=== PATIENT | female | born 1985 | race Two or more races ===

== ENCOUNTER 2022-01-28 15:35 | Emergency (ER) | payer MEDICARE, MEDICAID, SELFPAY ==
[2022-01-28 16:55] VITALS: BP 111/44; PULSE 57; RESP 18; TEMP 36.8; O2SAT 99; BMI 26.5
[2022-01-28 17:23] LABS: Amphetamine Screen Urine Not Detected (Not Detect); Barbiturates, Urine Not Detected (Not Detect); Benzodiazepines Screen Urine Not Detected (Not Detect); Cannabinoid Screen Urine POSITIVE (Not Detect); Cocaine Screen Urine Not Detected (Not Detect); Fentanyl, urine Not Detected (Not Detect); Opiate Screen Urine Not Detected (Not Detect); Phencyclidine Screen Urine Not Detected (Not Detect)
--- NOTE | 2022-01-28 17:51 | ED_ITS ---
HPI - General Adult General Chief complaint: General Medical Stated complaint: stated needs drug test per dcf Time Seen by Provider: 01/28/22 17:51 Source: patient Mode of arrival: ambulatory Limitations: no limitations History of Present Illness HPI narrative: Patient is a 36 year old assigned female at with no reported medical historypresenting to the emergency department today to have a drug screen done. Patient states that [facility] has requested that she get a drug screen. Patient denies any dizziness, lightheadedness, abdominal pain, nausea, vomiting, fever, chills, blurry vision, double vision, loss of vision, chest pain, difficulty breathing, shortness of breath, back pain, night sweats, pain with urination, increased urinary frequency, increased urinary urgency, blood in her urine or stool, syncope or a near syncopal episode, recent trauma or falls, bowel incontinence, bladder incontinence, bowel retention, bladder retention, or any other complaints at this time. Severity scale (1-10): 1 Relieving factors: none Exacerbating factors: none Associated symptoms: denies other symptoms Treatments prior to arrival: none Related Data Allergies Allergy/AdvReac Type Severity Reaction Status Date / Time No Known Allergies Allergy Unverified 12/09/19 15:33 Review of Systems Constitutional: Constitutional: Reports no additional constitutional complaints, Denies chills, Denies fever(s) and Denies night sweats Eyes: Eyes: Reports no additional eye complaints, Denies blurry vision, Denies change in vision, Denies diplopia, Denies eye discharge, Denies loss of vision and Denies eye pain ENT: Denies dizziness Cardiovascular: Cardiovascular: Reports no additional cardiovascular complaints, Denies chest pain, Denies lightheadedness, Denies Loss of Consciousness and Denies dyspnea Respiratory: Respiratory: Reports no additional respiratory complaints and Denies dyspnea Gastrointestinal: Gastrointestinal: Reports no additional gastrointestinal complaints, Denies abdominal pain, Denies melena, Denies hematochezia, Denies change in bowel habits and Denies change in stool character Genitourinary: Genitourinary: Denies hematuria, Denies urinary frequency, Denies dysuria, Denies urinary incontinence, Denies urinary hesitancy and Denies urinary urgency Musculoskeletal: Musculoskeletal: Reports no additional musculoskeletal complaints, Denies numbness and Denies tingling Neurologic: Denies dizziness, Denies loss of vision, Denies numbness and Denies tingling Psychiatric: Psychiatric: Reports no additional psychiatric complaints Endocrine: Endocrine: Reports no additional endocrine complaints Hematologic/Lymphatic: Hematologic/Lymphatic: Reports no additional hematologic/lymphatic complaints Allergic/Immunologic: Allergic/Immunologic: Reports no additional allergic/immunologic complaints [facility] Past Medical History Attestation statement: The following information was validated with the patient. Source: old records reviewed Social History Social History Advance Directives: No Advance Directives Information Provided: No Physical Exam ED Vital Signs: Vital Signs - 24 hr 01/28/22 16:55 Temperature 98.3 F Pulse Rate 57 Respiratory Rate 18 Blood Pressure 111/44 L Pulse Oximetry 99 Oxygen Delivery Method Room Air BMI result Body Mass Index 26.5 Const General: cooperative, no acute distress, alert and awake Nutritional Appearance: well nourished Orientation/consciousness: patient oriented x3 Limitations: no limitations HENMT Head: Yes normal to inspection and Yes atraumatic Ears: hearing grossly normal bilaterally and external ears normal General nose exam: Normal external nose present, no nasal discharge noted and no epistaxis Face and sinus: Yes normal facial exam, No abrasion and No laceration Mouth: Normal oral and palatal mucosa present, no drooling and no muffled voice Eyes General: appearance normal, both eyes and all related structures Periorbital: periorbital findings normal Eyelids: Yes eyelids normal Conjunctivae: conjunctivae normal Pupils: Equal, round and reactive pupils present EOM: EOMs intact bilaterally Neck Neck: Yes normal visual inspection, Yes full ROM and Yes no lymphadenopathy Chest Chest palpation & inspection: normal inspection of the chest Resp Effort & Inspection: normal respiratory effort and able to speak in complete sentences Auscultation: clear to auscultation bilaterally Cardio Rate: regular rate Rhythm: regular rhythm GI Inspection: Yes normal to inspection Neuro General: patient oriented x3 and moves all extremities Cranial nerves: Yes Equal, round and reactive pupils present Cognition (Neuro): normal cognition Motor exam (neuro): 5/5 motor strength present throughout Sensory Exam: Normal double simultaneous stimulation for sensation Coordination: [id number] test normal Extrem General: Yes normal to inspection, Yes full ROM and Yes capillary refill normal Psych Appearance: grossly normal Mental Status: mental status grossly normal Affect: normal affect Attitude: cooperative Thought process: Normal thought process present Thought content: Normal thought content present Insight: Good insight present (Psych) Medical Decision Making MDM Narrative Medical decision making narrative: Patient is a 36 year old assigned female at with no reported medical history presenting to the emergency department today needing a drug screen. Patient's physical exam was unremarkable. Patient's drug screen came back positve for THC but was otherwise unremarkable. I explained my physical exam findings as well as all test results to the patient. I answered all questions asked by the patient. I stressed the importance of the patient taking her medication as prescribed. I stressed the importance of the patient following up with her primary care provider. I stressed the importance of the patient returning to the emergency department immediately if her symptoms were to worsen or if she were to develop any dizziness, shortness of breath, difficulty breathing, chest pain, blurry vision, loss of vision, nausea, vomiting, abdominal pain, fever, chills, back pain, or any other complaints. Patient verbalized agreement and understanding with this treatment plan and discharge. Medical Records Medical records reviewed: Yes I reviewed the patient's medical records. Lab Data Lab results reviewed: Yes I reviewed the patient's lab results. Labs: Lab Results 01/28/22 Range/Units 17:00 Urine Opiates Screen Not Detected (Not Detect) Urine Fentanyl Screen Not Detected (Not Detect) Ur Barbiturates Screen Not Detected (Not Detect) Ur Phencyclidine Scrn Not Detected (Not Detect) Ur Amphetamines Screen Not Detected (Not Detect) U Benzodiazepines Scrn Not Detected (Not Detect) Urine Cocaine Screen Not Detected (Not Detect) U Marijuana (THC) Screen POSITIVE H (Not Detect) Discharge Plan Discharge Clinical Impression: Encounter for drug screening Patient Disposition: Home, Self-Care Additional Instructions: Follow up with your primary care provider. Return to the emergency department immediately if your symptoms worsen or if you develop any dizziness, shortness of breath, difficulty breathing, chest pain, blurry vision, loss of vision, nausea, vomiting, abdominal pain, fever, chills, back pain, or any other complaints. Referrals: [facility] [place] Family Medicine [Provider Group] (Call to establish and follow up with a primary care provider. If you already have a primary care provider, please follow up with them. ) [facility] [place] [facility] [Provider Group] (Call to establish and follow up with a primary care provider. If you already have a primary care provider, please follow up with them. ) [facility] [place] Primary [facility] [Provider Group] (Call to establish and follow up with a primary care provider. If you already have a primary care provider, please follow up with them. ) Interventions: ED Discharge Assessment Last Done: 01/28/22 18:02 Discharge Date/Time: 01/28/22 18:02 Print Language: Tanzanian
== END 2022-01-28 18:02 | disposition home or self-care (01) ==
PROVIDERS: Emergency Provider Emergency Medicine
DX: Z02.83 Encounter for blood-alcohol and blood-drug test (principal)
CPT/HCPCS: 80307; 99282; 99283

== ENCOUNTER 2022-04-09 11:03 | Emergency (ER) | payer MEDICARE, MEDICAID, SELFPAY ==
[2022-04-09 11:56] VITALS: BP 109/48; PULSE 69; RESP 14; TEMP 36.1; O2SAT 98; BMI 24.0
--- NOTE | 2022-04-09 11:56 | ED.GENADULT ---
HPI - General Adult General Chief complaint: General Medical Stated complaint: Drug test Time Seen by Provider: 04/09/22 12:30 Source: patient Mode of arrival: ambulatory Limitations: no limitations History of Present Illness HPI narrative: 36 yold female presents to the ED requesting drug test. patient states DCF wants her to have drug test for medical clearance. patient asympomatic Related Data Previous Rx's Medication Instructions Recorded nitrofurantoin 100 mg PO Q12H 7 days #14 caps 04/09/22 monohydrate/macrocrystals 100 mg capsule (Macrobid) Allergies Allergy/AdvReac Type Severity Reaction Status Date / Time No Known Allergies Allergy Unverified 12/09/19 15:33 Review of Systems Review of Systems: Patient asymptomatic [facility] Social History Social History Advance Directives: No Advance Directives Information Provided: No Physical Exam ED Vital Signs: Vital Signs - 24 hr 04/09/22 11:56 Temperature 96.9 F Pulse Rate 69 Respiratory Rate 14 Blood Pressure 109/48 L Pulse Oximetry 98 Oxygen Delivery Method Room Air BMI result Body Mass Index 24.0 Const General: cooperative, healthy appearing, comfortable, no acute distress, well developed, alert, awake and Physically active Orientation/consciousness: oriented to person, oriented to place, oriented to time and patient oriented x3 HENMT Head: Yes normal to inspection, Yes No palpable skull fracture present, Yes normocephalic, Yes atraumatic and No abrasion Eyes General: appearance normal, both eyes and all related structures Neck Neck: Yes normal visual inspection, Yes full ROM, Yes no lymphadenopathy, Yes no meningeal signs, Yes trachea midline, Yes supple, No anterior neck swelling and No tender Chest Chest palpation & inspection: normal inspection of the chest and normal palpation of entire chest wall Resp Effort & Inspection: normal respiratory effort and able to speak in complete sentences Auscultation: clear to auscultation bilaterally Cardio Jugular venous distension: no JVD Heart sounds: S1 normal heart sound present and S2 normal heart sound present GI Inspection: Yes normal to inspection and No abdominal wall ecchymosis Palpation (GI): Soft to palpation, not firm, nontender, no guarding and not rigid General: No CVA tenderness and Yes no CVA tenderness Back/Spine/Pelvis Back: no CVA tenderness, No CVA tenderness and No back tenderness Skin General skin exam: no rashes or lesions noted and elasticity normal Neuro General: oriented to person, oriented to place, oriented to time, patient oriented x3, gait normal, tone normal, moves all extremities, Normal light touch and pain sensation, no meningeal signs, no focal motor deficits, CN's II-XI intact bilaterally and normal sensation to monofilament Extrem General: Yes normal to inspection and Yes full ROM Psych Appearance: grossly normal and well kempt Course Course Course Narrative: RME: 36 yold female presents to the ED for drug test. DCF wants patient to have a drug screen as medical clearnace. patient states no physical complaitns. UA, UCG, and [facility] ordered Medical Decision Making Medical Decision Making MDM Narrative: 36 yold female seen here requesting drug test Admission/Observation not needed Lab Data MDM Lab Attestation statement: I reviewed the patient's lab results. Labs: Lab Results 04/09/22 04/09/22 04/09/22 Range/Units 12:03 12:03 12:03 Urine Color Yellow Urine Appearance Cloudy Urine pH 5.5 (5.0-9.0) Ur Specific [place] 1.020 (1.005-1.025) Urine Protein Negative (Neg-Trace) mg/dL Urine Glucose (UA) Negative (Negative) mg/dL Urine Ketones Negative (Negative) mg/dL Urine Blood Negative (Negative) Urine Nitrite Negative (Negative) Ur Leukocyte Esterase Large (3+) H (Negative) Urine RBC 0-2 (0-2) /HPF Urine WBC 11-20 H (0-5) /HPF Ur Squamous Epith Cells 11-20 (0-2) /HPF Urine Bacteria Trace (None Seen) Hyaline Casts 0-2 (0-2) /LPF Urine Test NEGATIVE (NEGATIVE) Urine Opiates Screen Not Detected (Not Detect) Urine Fentanyl Screen Not Detected (Not Detect) Ur Barbiturates Screen Not Detected (Not Detect) Ur Phencyclidine Scrn Not Detected (Not Detect) Ur Amphetamines Screen Not Detected (Not Detect) U Benzodiazepines Scrn Not Detected (Not Detect) Urine Cocaine Screen Not Detected (Not Detect) U Marijuana (THC) Screen POSITIVE H (Not Detect) Prescription Management I considered prescription management with: Antibiotic patient has UTI Discharge Plan Discharge Clinical Impression: Normal exam Patient Disposition: Home, Self-Care Instructions: Urinary Tract Infection in Women (ED), Medical Clearance for Substance Abuse Treatment (ED) Additional Instructions: Return to the ED for any concerning symptoms. Please follow up with PCP Prescriptions: New nitrofurantoin monohyd/m-cryst [Macrobid] 100 mg capsule 100 mg PO Q12H 7 Days Qty: 14 0RF Rx Instructions: must administer with a meal/food Discharge Date/Time: 04/09/22 12:45 Print Language: Urdu
[2022-04-09 12:17] LABS: Appearance Urine Cloudy; Color Urine Yellow; Glucose Urine UA Negative (Negative); Leukocyte Esterase Urine Large (3+) (Negative); Nitrite Urine Negative (Negative); PH 5.5 (5.0-9.0); UMIC TRIGGER UACC YES; Urine Blood Negative (Negative); Urine Ketones Negative (Negative); Urine Protein Negative (Neg-Trace)
[2022-04-09 12:18] LABS: UPreg QC Valid YES; Urine Pregnancy NEGATIVE (NEGATIVE)
[2022-04-09 12:20] LABS: Bacteria Urine Trace (None Seen); Hyaline Casts Urine 0-2 /LPF (0-2); RBC Urine 0-2 /HPF (0-2); UACC Culture Trigger YES
[2022-04-09 12:27] LABS: Amphetamine Screen Urine Not Detected (Not Detect); Barbiturates, Urine Not Detected (Not Detect); Benzodiazepines Screen Urine Not Detected (Not Detect); Cannabinoid Screen Urine POSITIVE (Not Detect); Cocaine Screen Urine Not Detected (Not Detect); Fentanyl, urine Not Detected (Not Detect); Opiate Screen Urine Not Detected (Not Detect); Phencyclidine Screen Urine Not Detected (Not Detect)
--- NOTE | 2022-04-09 16:56 | PC.NURSE ---
discharge by provider
== END 2022-04-09 12:45 | disposition home or self-care (01) ==
PROVIDERS: Physician Assistant Medical; Emergency Provider Emergency Medicine
DX: Z02.9 Encounter for administrative examinations, unspecified (principal); Z79.899 Other long term (current) drug therapy
CPT/HCPCS: 80307; 81001; 81025; 87086; 99282

== ENCOUNTER 2022-09-23 04:59 | Emergency (ER) | payer MEDICARE, MEDICAID, SELFPAY ==
[2022-09-23 05:00] VITALS: BP 128/53; PULSE 84; RESP 18; TEMP 36.1; O2SAT 96; BMI 21.3
--- NOTE | 2022-09-23 06:21 | ED.MEDCLEAR ---
HPI - Medical Clearance General Chief complaint: Medical Clearance Stated complaint: general medical Time Seen by Provider: 09/23/22 05:58 Source: patient Mode of arrival: ambulatory Limitations: no limitations History of Present Illness HPI Narrative: 36-year-old female came in for medical clearance for a new job that need urine tox screen. Patient declined using any drugs. Related Information Previous Rx's Medication Instructions Recorded nitrofurantoin 100 mg PO Q12H 7 days #14 caps 04/09/22 monohydrate/macrocrystals 100 mg capsule (Macrobid) Allergies Allergy/AdvReac Type Severity Reaction Status Date / Time No Known Allergies Allergy Unverified 12/09/19 15:33 Review of Systems Review of Systems: All other systems are reviewed and are negative Constitutional: Reports as per HPI and Reports no additional constitutional complaints Eyes: Reports as per HPI and Reports no additional eye complaints Reports system reviewed and no additional complaints, except as documented Cardiovascular: Reports as per HPI and Reports no additional cardiovascular complaints Respiratory: Reports as per HPI and Reports no additional respiratory complaints Gastrointestinal: Reports as per HPI and Reports no additional gastrointestinal complaints Genitourinary: Reports no additional female genitourinary complaints Musculoskeletal: Reports no additional musculoskeletal complaints Skin/Breast: Reports system reviewed and no additional complaints, except as docu Psychiatric: Reports no additional psychiatric complaints Endocrine: Reports no additional endocrine complaints Hematologic/Lymphatic: Reports no additional hematologic/lymphatic complaints Allergic/Immunologic: Reports no additional allergic/immunologic complaints Reports system reviewed and no additional complaints, except as documented and Reports Abnormal speech present [facility] Social History Social History Advance Directives: No Advance Directives Information Provided: No Physical Exam Vital Signs: Vital Signs: Last Vital Signs Temp 97 F 09/23/22 05:00 Pulse 84 09/23/22 05:00 Resp 18 09/23/22 05:00 BP 128/53 L 09/23/22 05:00 Pulse Ox 96 09/23/22 05:00 O2 Del Method Room Air 09/23/22 05:00 BMI result Body Mass Index 21.3 Vital signs have been reviewed as appeared to be correct. Blood pressure normal. Heart rate normal. Respiration rate normal. Temperature normal. Oxygen saturation normal. Appearance: Alert. Oriented X3. No acute distress. Head: Normal external exam. Normocephalic. Atraumatic. No Dick signs noted. No raccoon eyes noted Eyes: PERRLA. EOMI. Conjunctiva and sclera normal. Eyelids normal. ENT: TM's Normal. Pharynx normal. Uvula midline. Moist mucous membranes. No trismus noted. No drooling noted. No muffled voice noted. Neck: Normal inspection. Neck supple. FROM. No adenopathy. Thyroid Normal. No meningeal signs. No neck mass noted. CVS: Normal heart rate and rhythm. Heart sound normal. No murmurs noted. Pulses normal throughout. Respiratory: No respiratory distress. Painless inspiration. Breath sounds normal. No wheezes/rales/rhonchi noted. Chest nontender. No accessory muscle usage noted or decreased air movement noted. Abdomen: Soft and nontender. Bowel sounds normal in all 4 quadrants. No distention noted. No organomegaly noted. No visible injury noted. Back: No CVA tenderness. Full range of motion noted. Skin: Skin warm and dry. Normal skin color. Normal skin turgor. No rashes/lesions/lacerations noted. Extremities: No lower extremity edema. Extremities exhibit normal range of motion. Extremities nontender. Neuro: Oriented X 3. Cranial nerve exam: II-XII are grossly intact No motor deficit. No sensory deficit. Reflexes normal. Course Course Course Narrative: Normal general physical exam, patient is positive for cocaine and fentanyl. Medical Decision Making Differential Diagnosis Differential Diagnoses: The differential diagnosis associated with the presentation includes (Medical screening exam, urine toxic screen.) Lab Data MDM Lab Attestation statement: I reviewed the patient's lab results. Labs: Lab Results 09/23/22 Range/Units 05:05 Urine Opiates Screen Not Detected (Not Detect) Urine Fentanyl Screen POSITIVE H (Not Detect) Ur Barbiturates Screen Not Detected (Not Detect) Ur Phencyclidine Scrn Not Detected (Not Detect) Ur Amphetamines Screen Not Detected (Not Detect) U Benzodiazepines Scrn Not Detected (Not Detect) Urine Cocaine Screen POSITIVE H (Not Detect) U Marijuana (THC) Screen Not Detected (Not Detect) Discharge Plan Discharge Clinical Impression: Encounter for medical screening examination, Polysubstance abuse Patient Disposition: Home, Self-Care Instructions: Normal Exam (ED) Prescriptions: No Action nitrofurantoin monohyd/m-cryst [Macrobid] 100 mg capsule 100 mg PO Q12H 7 Days Qty: 14 0RF Rx Instructions: must administer with a meal/food
== END 2022-09-23 06:33 | disposition home or self-care (01) ==
PROVIDERS: Emergency Provider Emergency Medicine
DX: Z02.89 Encounter for other administrative examinations (principal); F19.10 Other psychoactive substance abuse, uncomplicated
CPT/HCPCS: 80307; 99284

== ENCOUNTER 2022-11-07 16:54 | Emergency (ER) | payer MEDICARE, MEDICAID, SELFPAY ==
[2022-11-07 17:34] VITALS: BP 118/71; PULSE 62; RESP 17; TEMP 36.4; O2SAT 100; BMI 17.4
--- NOTE | 2022-11-07 18:55 | ED_ITS ---
HPI - Skin/Abscess/Foreign Bdy General Chief complaint: Skin/Abscess/Foreign Body Stated complaint: Cyst on R buttocks Time Seen by Provider: 11/07/22 18:58 Source: patient, RN notes reviewed and old records reviewed Mode of arrival: ambulatory History of Present Illness HPI narrative: 37-year-old female with no significant past medical history presenting to the ED complaining painful cyst right buttock x3 days. Admits area draining small amount of blood and pus intermittently at home. Denies fever/chills, painful BMs, hematuria complaint: abscess/boil Related Data Previous Rx's Medication Instructions Recorded nitrofurantoin 100 mg PO Q12H 7 days #14 caps 04/09/22 monohydrate/macrocrystals 100 mg capsule (Macrobid) cephalexin 500 mg capsule 500 mg PO QID 7 days #28 caps 11/07/22 doxycycline hyclate 100 mg tablet 100 mg PO BID 7 days #14 tabs 11/07/22 Allergies Allergy/AdvReac Type Severity Reaction Status Date / Time No Known Allergies Allergy Unverified 12/09/19 15:33 Review of Systems Review of Systems: Constitutional: No Fever, No Chills ENT/Mouth: No Ear Pain, No Nasal Congestion, No sore throat, No Rhinorrhea, No Swallowing Difficulty Cardiovascular: No Chest Pain, No SOB Respiratory: No Cough, No Wheezing Gastrointestinal: No Nausea, No Vomiting, No Diarrhea, No Constipation, No Abdominal pain Musculoskeletal: No joint pain, No Myalgias, No Joint Swelling Skin: +Skin Lesions, No rash Neuro: No Weakness Yes all other systems are reviewed and are negative Constitutional: Constitutional: Reports as per [facility] Past Medical History Attestation statement: The following information was validated with the patient. Source: old records reviewed Physical Exam Vital Signs: Vital Signs: Last Vital Signs Temp 97.5 F 11/07/22 17:34 Pulse 62 11/07/22 17:34 Resp 17 11/07/22 17:34 BP 118/71 11/07/22 17:34 Pulse Ox 100 11/07/22 17:34 O2 Del Method Room Air 11/07/22 17:34 BMI result Body Mass Index 17.4 Const: General: cooperative, healthy appearing and no acute distress Orientation/consciousness: patient oriented x3 Limitations: no limitations HEENT: Head: Yes normal to inspection and Yes atraumatic Ears: hearing grossly normal bilaterally General nose exam: Normal external nose present Face and sinus: Yes normal facial exam Eyes: General: appearance normal, both eyes and all related structures EOM: EOMs intact bilaterally Neck: Neck: Yes normal visual inspection and Yes no meningeal signs Resp: Effort & Inspection: normal respiratory effort and no respiratory distress Cardio: Rate: regular rate Skin: Other: + small indurated abscess noted to right buttock. Mild overlying erythema, tender to palpation. No fluctuance or active drainage. No streaking. No warmth. No perianal/perirectal involvement Rashes: no rashes Neuro: General: patient oriented x3, tone normal and no meningeal signs Cranial nerves: Yes CN's II-XII intact bilaterally Gait exam (Neuro): Normal gait present Extrem: General: Yes normal to inspection Medical Decision Making Medical Decision Making MDM Narrative: 37-year-old female with no significant past medical history presenting to the ED complaining painful cyst right buttock x3 days. On exam vital signs stable, NAD, nontoxic appearing, physical exam as noted above with indurated abscess. No indication for I&D at this time. No evidence of pilonidal, perirectal or perianal abscess. No evidence of Mehran gangrene Plan:PO antibiotics, PCP follow-up Results discussed with patient including worrisome signs and symptoms and strict return precautions, and when to return to the emergency department. They verbalized understanding and feel safe for discharge at this time. Differential Diagnosis Differential Diagnoses: The differential diagnosis associated with the presentation includes As above External Record Review External record reviewed: Inpatient record, Office record, Outpatient record, Prior outpatient labs, Prior outpatient radiology, Primary care record and Outside ED record Tests considered The following testing was considered but not selected: As above Prescription Management I considered prescription management with: Pain Medication and Antibiotic Discharge Plan Discharge Clinical Impression: Abscess Patient Disposition: Home, Self-Care Instructions: Abscess (ED) Additional Instructions: Apply warm compresses Keflex and doxycycline or antibiotics please take as prescribed If area worsens, becomes more red you have fever, pain is unbearable, is open/draining return to the ED Follow-up with her doctor Prescriptions: New cephalexin 500 mg capsule 500 mg PO QID 7 Days Qty: 28 0RF doxycycline hyclate 100 mg tablet 100 mg PO BID 7 Days Qty: 14 0RF No Action nitrofurantoin monohyd/m-cryst [Macrobid] 100 mg capsule 100 mg PO Q12H 7 Days Qty: 14 0RF Rx Instructions: must administer with a meal/food Referrals: Physician,Unknown J [Primary Care Provider] -
== END 2022-11-07 19:14 | disposition home or self-care (01) ==
LOC: HO.ED 19:01
PROVIDERS: Emergency Provider Emergency Medicine
DX: L02.31 Cutaneous abscess of buttock (principal)
CPT/HCPCS: 99282; 99283

== ENCOUNTER 2024-04-05 14:41 | Emergency (ER) | payer MEDICARE, SELFPAY ==
[2024-04-05 15:13] VITALS: BP 110/78; PULSE 102; RESP 16; TEMP 36.4; O2SAT 95; BMI 18.6
--- NOTE | 2024-04-05 15:15 | ED_ITS ---
HPI - General Adult General Chief complaint: Skin/Abscess/Foreign Body Stated complaint: outbrake rash Time Seen by Provider: 04/05/24 15:15 Source: patient, RN notes reviewed and old records reviewed Mode of arrival: ambulatory Limitations: no limitations History of Present Illness ED Provider: Celia [facility] narrative: Patient is a 30-year-old female with history of genital herpes presenting with complaint of HSV outbreak to genital area for the past 5 days. States feels simialar to prior outbreaks but she does not have any medication at home. Denies abdominal pain or urinary symptoms. Denies fevers. Denies abnormal discharge. MD complaint: genital rash Onset (ago): day(s) Severity: severe Quality: burning Pain Consistency: constant Treatments prior to arrival: none Related Data Previous Rx's ?Medication ?Instructions ?Recorded nitrofurantoin 100 mg PO Q12H 7 days #14 caps 04/09/22 monohydrate/macrocrystals 100 mg capsule (Macrobid) cephalexin 500 mg capsule 500 mg PO QID 7 days #28 caps 11/07/22 doxycycline hyclate 100 mg tablet 100 mg PO BID 7 days #14 tabs 11/07/22 valacyclovir 1 gram tablet 500 mg (1/2 x 1 gram) PO BID 3 04/05/24 days #3 tabs Allergies Allergy/AdvReac Type Severity Reaction Status Date / Time ibuprofen Allergy Rash Verified 04/05/24 15:15 Review of Systems Review of Systems: As per HPI Yes all other systems are reviewed and are negative Constitutional: Constitutional: Reports as per HPI Physical Exam ED Vital Signs: Vital signs have been reviewed and appear to be correct. Blood pressure normal. Heart rate normal. Respiratory rate normal. Temperature normal. Oxygen saturation normal. Const General: cooperative, healthy appearing and no acute distress Orientation/consciousness: oriented to person, oriented to place, oriented to time and patient oriented x3 Limitations: no limitations HENMT Head: Yes normocephalic and Yes atraumatic Ears: external ears normal General nose exam: Normal external nose present Face and sinus: Yes face symmetric Mouth: oropharynx normal and moist mucous membranes Throat: Yes uvula midline Eyes Pupils: Equal, round and reactive pupils present Neck Neck: Yes normal visual inspection and Yes supple Resp Effort & Inspection: normal respiratory effort and able to speak in complete sentences Auscultation: clear to auscultation bilaterally Cardio Rate: regular rate Rhythm: regular rhythm Heart sounds: S1 normal heart sound present and S2 normal heart sound present GI Palpation (GI): Soft to palpation and nontender Auscultation: normoactive bowel sounds General: Yes no CVA tenderness Back/Spine/Pelvis Back: no CVA tenderness Skin General skin exam: elasticity normal and turgor normal Neuro General: oriented to person, oriented to place, oriented to time, patient oriented x3, moves all extremities, no focal motor deficits and CN's II-XI intact bilaterally Cranial nerves: Yes Equal, round and reactive pupils present Cognition (Neuro): normal cognition Extrem General: Yes full ROM, Yes no pedal edema and Yes no calf tenderness Psych Mental Status: mental status grossly normal Affect: normal affect Thought process: Normal thought process present Medical Decision Making Medical Decision Making [facility] Narrative: Patient is a 30-year-old female with history of genital herpes presenting with complaint of HSV outbreak to genital area for the past 5 days. On exam patient is awake, A+Ox3, VS WNL, afebrile, normal neurological exam without focal deficits, physical exam findings as above. Given reported symptoms and physical exam findings, initial differential includes but is not limited to HSV flare, other STI. Through shared decision making with patient, will treat with valacyclovir and defer pelvic exam at this time given history of HSV in the past. Discussed with patient that she should be re-evaluated here or with [facility] if symptoms persist. Patient verbalized understanding of and agreement with plan. Differential Diagnosis Differential Diagnoses: The differential diagnosis associated with the presentation includes as per [facility] External Record Review External record reviewed: Inpatient record, Office record and Outpatient record Prescription Management I considered prescription management with: Antiviral Discharge Plan Discharge Clinical Impression: Herpes genitalis Patient Disposition: Home, Self-Care Instructions: Genital Herpes Simplex (ED), Sexually Transmitted Diseases (ED) Additional Instructions: You are being treated for a herpes flare with valacyclovir. Take the full course of medication as prescribed. Follow up with your primary care provider or [facility] as needed or if symptoms persist. Return to the ED with any new or concerning symptoms. Prescriptions: New valacyclovir 1 gram tablet 500 mg PO BID 3 Days Qty: 3 0RF No Action nitrofurantoin monohyd/m-cryst [Macrobid] 100 mg capsule 100 mg PO Q12H 7 Days Qty: 14 0RF Rx Instructions: must administer with a meal/food cephalexin 500 mg capsule 500 mg PO QID 7 Days Qty: 28 0RF doxycycline hyclate 100 mg tablet 100 mg PO BID 7 Days Qty: 14 0RF Print Language: Sinhala
== END 2024-04-05 15:27 | disposition home or self-care (01) ==
PROVIDERS: Emergency Provider Emergency Medicine
DX: A60.04 Herpesviral vulvovaginitis (principal)
CPT/HCPCS: 99281; 99283

== ENCOUNTER 2024-12-03 17:40 | Emergency (ER) | payer MEDICARE, OTHER, SELFPAY ==
--- NOTE | ~2024-12-03 | XR_ITS ---
CLINICAL HISTORY: pain, injury 2 view right femur Comparison: None provided Findings: No fractures or dislocations. No knee effusion. No significant arthritic change. No radiopaque foreign body. IMPRESSION: 1. Normal right femur This document has been electronically signed by: Mikhail Conway MD on 12/03/2024 19:34:29
--- NOTE | ~2024-12-03 | CT_ITS ---
CLINICAL HISTORY: pain, injury CT head without contrast Comparison: None provided Findings: No intra-axial mass, midline shift, hydrocephalus, or acute hemorrhage. No significant atrophy-like change or white matter disease. The visualized paranasal sinuses and mastoid air cells are normal. The orbits are unremarkable. There is no acute fracture. Mucosal thickening of the left frontoethmoidal recess. IMPRESSION: 1. No acute intracranial findings. This document has been electronically signed by: Mikhail Conway MD on 12/03/2024 19:24:27
--- NOTE | ~2024-12-03 | CT_ITS ---
CLINICAL HISTORY: pain, injury CT cervical spine without contrast Comparison: None provided Findings: Normal vertebral body alignment. Mild degenerative change of the cervical spine. No acute fractures or dislocations. Mild mucosal thickening of the sphenoid sinuses and left maxillary sinus. Soft tissues of the neck are normal. Lung apices are clear. IMPRESSION: No acute findings. This document has been electronically signed by: Mikhail Conway MD on 12/03/2024 19:27:51
[2024-12-03 17:55] VITALS: BP 127/58; PULSE 76; RESP 18; TEMP 36.3; O2SAT 97; BMI 18.4
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
--- OUTSIDE RECORDS SUMMARY | 2024-12-03 19:09 | XMS_ITS | Clinical Summary ---
Author Organization [employer] Address [address] [place] [address] Care Team Providers Care Community Planner Name Role Phone Unavailable Primary Care Provider Unavailabl e Allergies Active Allergy Reactions Criticality Noted Date Comments Ibuprofen 06/28/2022 all antiinflammotories Encounters Date Type Department Care Team Description 09/29/2024 Telephone [facility] [address] [place] [address] Mari To RN from Last 3 Months Immunizations Immunization Administration Dates Next Due Influenza Whole 02/20/2011 Pfizer Covid-19 Vaccine 12+ 06/03/2022 Pfizer Covid-19 Vaccine 12+ chloe-sucrose (Gan Cap) 06/28/2022 Tdap 03/12/2021,03/07/2017,09/23/2011 Social History Tobacco Use Types Packs/Day Years Used Date Smoking Tobacco: Never Assessed Comments Unknown Sex and Gender Information Value Date Recorded Sex Assigned at Female 06/03/2022 4:02 PM EDT Legal Sex Female 4:00 PM EDT Gender Identity Female 06/03/2022 4:02 PM EDT Sexual Orientation Straight 06/03/2022 4: 02 PM EDT Plan of Treatment Health Maintenance Due Date Last Done Comments Depression Screening 1985 HIV Screening 1985 SDOH Screening 1985 Disability Screening 1985 Alcohol/Substance Use Screening 1997 Tobacco Screening 1997 Family Planning (PISQ) 2000 HPV Vaccines (1 - 3-dose series) 2000 Hepatitis C Screening 10/14/2003 Pap Smear 2006 Cervical Cancer Screening 10/14/2015 HPV/Cotest 10/14/2015 COVID-19 Vaccine (3 - 2024-2 6 season) 2024 06/28/2022, 06/03/2022 Influenza Vaccine (#1) 2024 02/20/2011 DTaP/Tdap/Td Vaccines (4 - T d or Tdap) 03/12/2031 03/12/2021, 03/07/2017, 09/23/2011 Zoster Vaccines (1 of 2) 10/14/2035 RSV Patients and Patients Aged 60 years or older (1 - 1-dose 75+ series) 2060 Hepatitis A Vaccines Aged Out 06/29/2024, 09/17/2023 No longer eligible based on patient's age to complete this topic Hepatitis B Vaccines Completed 06/29/2024, 09/17/2023, 08/03/2012 HIB Vaccines Aged Out No longer eligi ble based on patient's age to complete this topic IPV Vaccines Aged Out No longer eligi ble based on patient's age to complete this topic Meningococcal B Vaccine Aged Out No l onger eligible based on patient's age to complete this topic Meningococcal Vaccine Aged Out No estela bianca eligible based on patient's age to complete this topic Pneumococcal Vaccine: Pediatrics (0 to 5 Years) and At-Risk Patients (6 to 49) Years Aged Out No longer eligible b ased on patient's age to complete this topic RSV under 20 months Aged Out No longe r eligible based on patient's age to complete this topic Rotavirus Vaccines Aged Out No longer eligible based on patient's age to complete this topic Insurance [facility]
--- NOTE | 2024-12-03 19:10 | PC.NURSE ---
Pt requested and given food. Plan of care ongoing.
[2024-12-03 19:37] VITALS: BP 104/53; PULSE 68; RESP 20; TEMP 36.7; O2SAT 100
[2024-12-03 19:52] VITALS: BP 104/53; PULSE 68; RESP 20; TEMP 36.7; O2SAT 100
== END 2024-12-03 19:54 | disposition home or self-care (01) ==
PROVIDERS: Emergency Provider Student in an Organized Health Care Education/Training Program
DX: S70.11XA Contusion of right thigh, initial encounter (principal); S80.811A Abrasion, right lower leg, initial encounter; R51.9 Headache, unspecified; M79.604 Pain in right leg; V43.52XA Car driver injured in collision with other type car in traffic accident, initial encounter; Y93.9 Activity, unspecified; Y92.410 Unspecified street and highway as the place of occurrence of the external cause; Y99.8 Other external cause status; M54.2 Cervicalgia
CPT/HCPCS: 70450; 72125; 73552; 99284

== ENCOUNTER → 2024-12-03 17:59 | Outpatient (BNV) | payer MEDICARE, MEDICAID, SELFPAY | PROVIDERS: Emergency Provider Student in an Organized Health Care Education/Training Program; Visit Provider Radiology Diagnostic Radiology | DX: M54.2 Cervicalgia (principal); S09.90XA Unspecified injury of head, initial encounter; M79.651 Pain in right thigh; V89.2XXA Person injured in unspecified motor-vehicle accident, traffic, initial encounter | CPT/HCPCS: 70450; 72125; 73552 ==